=== PATIENT | female | born 1960 | race Hispanic/Latino ===

== ENCOUNTER 2018-07-08 21:31 | Emergency (ER) | payer OTHER ==
[~2018-07-08 21:31] MED LIST: LAMOTRIGINE100 MG PO; LEXAPRO20 MG PO; LORAZEPAM0.5 MG PO; RISPERDAL1 MG PO; TRILEPTAL150 MG PO
== END 2018-07-08 22:49 | disposition short-term general hospital (02) ==
LOC: ER 21:31
DX: N64.4 Mastodynia (principal)